=== PATIENT | female | born 2000 | race Hispanic/Latino ===

== ENCOUNTER 2023-05-03 16:14 | Emergency (ER) | payer BC ==
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
[2023-05-03 17:50] LABS: Absolute Lymphocytes (CBC) 1.3 K/uL (0.7-4.9); Hematocrit 43.9 % (36.0-45.0); Lymphocytes % 13.8 % (15.3-44.8); MCV 93.3 fL (80-100); MPV 7.6 fL (7.6-11.3); RBC Red Blood Cell Count 4.71 M/uL (3.86-4.86)
[2023-05-03 17:58] LABS: Specific Gravity > 1.030 (1.005-1.030); Urine Bacteria <20 /HPF (<20); Urine Bilirubin NEGATIVE (Negative); Urine Blood Negative (Negative); Urine Clarity Extremely Turbid (Clear); Urine Color Yellow (Yellow); Urine Glucose NEGATIVE (Negative); Urine Mucus 4+ /HPF (None Seen); Urine Protein 1+ (Negative); Urine Urobilinogen 1+ (Normal)
--- NOTE | 2023-05-03 18:07 | RAD REPORT ---
EXAM DESCRIPTION: Anish Single View05/03/2023 5:54 pm CLINICAL HISTORY: Chest pain COMPARISON: 2010 FINDINGS: The lungs appear clear of acute infiltrate. The heart is normal size IMPRESSION: No acute abnormalities displayed
[2023-05-03 18:15] LABS: Specific Gravity 1.037 (1.005-1.030)
[2023-05-03 18:28] LABS: ALT/SGPT 21 U/L (13-56); AST/SGOT 15 U/L (15-37); Albumin 3.9 g/dL (3.4-5.0); Alkaline Phosphatase 68 U/L (45-117); BUN Blood Urea Nitrogen 13 mg/dL (7-18); Bicarbonate 27 mEq/L (21-32); Bilirubin Direct 0.3 mg/dL (0-0.2); Bilirubin Indirect, Calculated 0.8 mg/dL (0.2-0.8); Bilirubin Total 1.1 mg/dL (0.2-1.0); Glomerular Filtration Rate 128 ml/min (=/>90); Glucose Level 85 mg/dL (74-106); Lipase 25 U/L (13-75); Magnesium 2.3 mg/dL (1.6-2.4); Potassium 3.8 mEq/L (3.5-5.1); Protein, Total 8.2 g/dL (6.4-8.2); Sodium Level 139 mEq/L (136-145)
[2023-05-03 18:29] LABS: Troponin High Sensitivity < 3.0 pg/mL (<58.9)
[2023-05-03] MEDS ORDERED: METOCLOPRAMIDE 10 MG/2mL INJ ONE (18:29)
[2023-05-03] MEDS ORDERED: ACETAMINOPHEN 325 MG TABLET ONE (18:30)
[2023-05-03] MEDS ORDERED: DIPHENHYDRAMINE 50 MG/ML VIAL ONE (18:30)
[2023-05-03] MEDS ORDERED: NA CHLORIDE 0.9% 1,000 ML ONE (18:30)
--- NOTE | 2023-05-03 18:58 | RAD REPORT ---
EXAM DESCRIPTION: CT - Head Brain Wo Cont - 05/03/2023 6:37 pm CLINICAL HISTORY: Headache COMPARISON: none TECHNIQUE: Computed axial tomography of the head was obtained. IV contrast was not requested. All CT scans are performed using dose optimization technique as appropriate and may include automated exposure control or mA/KV adjustment according to patient size. FINDINGS: An intracranial bleed is not seen The ventricles are normal in caliber No significant hypodense areas within the brain visualized No extra-axial fluid collection is noted. Fluid within the sinuses/ mastoids is not seen IMPRESSION: No acute intracranial abnormality is seen If patient's symptoms persist MRI of the brain would be recommended
[2023-05-03] MEDS ORDERED: KETOROLAC 30 MG/ML INJ ONE (19:29)
[2023-05-03] MEDS ORDERED: dexAMETHasone 10 MG/ML VIAL ONE (19:29)
--- NOTE | 2023-05-03 20:50 | RAD REPORT ---
EXAM DESCRIPTION: CT - Abdomen Pelvis W Contrast - 05/03/2023 8:30 pm CLINICAL HISTORY: Abdominal pain/right flank pain COMPARISON: none. TECHNIQUE: Computed axial tomography of the abdomen pelvis was obtained. 94 cc Isovue-300 was admini stered intravenously. Oral contrast was not requested which limits evaluation of bowel and appendix All CT scans are performed using dose optimization technique as appropriate and may include automated exposure control or mA/KV adjustment according to patient size. FINDINGS: The liver, spleen, pancreas, adrenal and kidneys appear unremarkable. There is no evidence of diverticulitis. A moderate amount of stool within the colon. An abnormal appendix is not seen. 2 centimeter irregularly shaped right ovarian cyst with small amount of free fluid. Mild compression deformity T12 vertebral body probably chronic IMPRESSION: 2 centimeter right ovarian cyst with small amount of free fluid. The cyst most likely scanlon s recently ruptured
--- NOTE | 2023-05-03 21:14 | EDPHYS ---
Physician Documentation [facility] Name: Iva Joy Age: 22 yrs Sex: Female : 2000 Arrival Date: 05/03/2023 Time: 16:14 Bed 4 Private MD: ED Physician Gigi Trevizo HPI: 05/03 16:50 This 22 yrs old Female presents to ER via Ambulatory with complaints of cp Headache, Flank Pain, Chest Tightness. 16:50 The patient complains of pain to the top of head and forehead. The patient describes cp the headache as aching, constant. Onset: The symptoms/episode began/occurred yesterday morning upon awakening. 16:50 Associated signs and symptoms: Pertinent positives: urinary symptoms, flank pain, chest cp pain. Severity of symptoms: in the emergency department the pain is unchanged, despite home interventions. Headache History: Other patient reports history of migraines in the past and this headache is not the worst she has experienced, but headache has lasted longer than usual with no relief. the symptoms are aggravated by movement. 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 - Social history:: Smoking status: Reported history of juuling and/or vaping. ROS: 16:55 Constitutional: Negative for body aches, chills, fever, poor PO intake. cp 16:55 Eyes: Negative for injury, pain, redness, and discharge. cp 16:55 ENT: Negative for drainage from ear(s), ear pain, sore throat, difficulty swallowing, difficulty handling secretions. 16:55 Cardiovascular: Positive for chest pain, Negative for edema, palpitations. 16:55 Respiratory: Positive for chest tightness, Negative for cough, wheezing. 16:55 Abdomen/GI: Negative for abdominal pain, vomiting, diarrhea, constipation. 16:55 : Positive for flank pain. 16:55 Neuro: Positive for headache, Negative for altered mental status, loss of consciousness, syncope, weakness. 16:55 All other systems are negative. Exam: 17:00 Constitutional: The patient appears in no acute distress, alert, awake, cp non-diaphoretic, non-toxic, well developed, well nourished. 17:00 Head/Face: Normocephalic, atraumatic. cp 17:00 Eyes: Periorbital structures: appear normal, Pupils: equal, round, and reactive to light and accomodation, Extraocular movements: intact throughout, Conjunctiva: normal, no exudate, no injection, Sclera: no appreciated abnormality, Lids and lashes: appear normal, bilaterally. 17:00 ENT: External ear(s): are unremarkable, Nose: is normal, Mouth: Lips: moist, Oral mucosa: pink and intact, moist, Posterior pharynx: is normal, airway is patent, no erythema, no exudate. 17:00 Neck: ROM/movement: is normal, is supple, without pain, no range of motions limitations, no meningismus, no nuchal rigidity. 17:00 Chest/axilla: Inspection: normal. 17:00 Cardiovascular: Rate: normal, Rhythm: regular. 17:00 Respiratory: the patient does not display signs of respiratory distress, Respirations: normal, no use of accessory muscles, no retractions, labored breathing, is not present, Breath sounds: are clear throughout, no decreased breath sounds, no stridor, no wheezing. 17:00 Abdomen/GI: Inspection: abdomen appears normal, Bowel sounds: active, all quadrants, Palpation: abdomen is soft and non-tender, in all quadrants. 17:00 Back: CVA tenderness, is absent. 17:00 Neuro: Orientation: to person, place \T\ time. Mentation: is normal, Cerebellar function: is grossly normal, Motor: moves all fours, strength is normal, Sensation: is normal. 17:45 ECG was reviewed by the Attending Physician. cp Vital Signs: 16:32 BP 121 / 74; Pulse 91; Resp 18; Temp 98.5; Pulse Ox 100% on R/A; Weight 60.78 kg; mb9 Height 5 ft. 3 in. ; Pain 8/10; 18:40 BP 100 / 59; Pulse 69; Resp 15 S; Pulse Ox 100% on R/A; aa5 20:48 BP 94 / 67; Pulse 61; Resp 16; Pulse Ox 100% on R/A; jb4 16:32 Body Mass Index 23.74 (60.78 kg, 160.02 cm) mb9 16:32 Pain Scale: Adult mb9 MDM: 16:41 Patient medically screened. 21:14 Data reviewed: vital signs, nurses notes, lab test result(s), EKG, radiologic studies, cp CT scan, plain films. 21:14 I considered the following discharge prescriptions or medication management in the emergency department Medications were administered in the Emergency Department. See MAR. Counseling: I had a detailed discussion with the patient and/or guardian regarding: the historical points, exam findings, and any diagnostic results supporting the discharge/admit diagnosis, lab results, radiology results, to return to the emergency department if symptoms worsen or persist or if there are any questions or concerns that arise at home. Response to treatment: the patient's symptoms have markedly improved after treatment, and as a result, I will discharge patient. Special discussion: Based on the patient's history, exam, and Dx evaluation, there is no indication for emergent intervention or inpatient Tx. It is understood by the patient/guardian that if the Sx's persist or worsen they need to return immediately for re-evaluation. Based on the patient's Hx, exam, and Dx evaluation, there is no indication for emergent surgery or inpatient Tx. It is understood by the patient/guardian that if the Sx's persist or worsen they need to return immediately for re-evaluation. 05/03 16:41 Order name: Basic Metabolic Panel; Complete Time: 19:10 05/03 16:41 Order name: CBC with Diff; Complete Time: 18:26 05/03 18:26 Interpretation: Normal except: FARHEEN% 76.0; LYM% 13.8. 05/03 16:41 Order name: LFT's; Complete Time: 19:10 cp 05/03 16:41 Order name: Magnesium; Complete Time: 19:10 05/03 16:41 Order name: Troponin HS; Complete Time: 19:10 05/03 16:41 Order name: Lipase; Complete Time: 19:10 05/03 17:02 Order name: Urinalysis W/Microscopic; Complete Time: 18:26 EDMS 05/03 18:26 Interpretation: Normal except: [facility] Extremely Turbid; Urine SG > 1.030; UPROT 1+; UUROB cp 1+; UESTR 25; URBC 5-10; MUCUS 4+. 05/03 17:02 Order name: Test, Urine; Complete Time: 18:26 EDMS 05/03 18:26 Interpretation: Abnormal: Urine SG 1.037. 05/03 16:41 Order name: XRAY Chest (1 view); Complete Time: 18:26 05/03 18:27 Interpretation: Report review. 05/03 16:44 Order name: CT Head Brain wo Cont; Complete Time: 19:10 05/03 19:26 Order name: CT Abd/Pelvis - IV Contrast Only; Complete Time: 21:11 05/03 21:11 Interpretation: Report reviewed. 05/03 16:41 Order name: EKG; Complete Time: 17:11 05/03 16:41 Order name: Cardiac monitoring; Complete Time: 17:42 05/03 16:41 Order name: EKG - Nurse/Tech; Complete Time: 17:42 05/03 16:41 Order name: IV Saline Lock; Complete Time: 17:42 05/03 16:41 Order name: Labs collected and sent; Complete Time: 17:42 05/03 16:41 Order name: O2 Per Protocol; Complete Time: 17:42 05/03 16:41 Order name: O2 Sat Monitoring; Complete Time: 17:42 cp EC:45 Rate is 74 beats/min. Rhythm is regular. NE interval is normal. QRS interval is normal. cp QT interval is normal. T waves are Inverted in lead aVR. Interpreted by me. Reviewed by me. Administered Medications: 18:40 Drug: metoCLOPramide IVP 10 mg Route: IVP; Site: left antecubital; aa5 18:40 Drug: diphenhydrAMINE IVP 25 mg Route: IVP; Site: left antecubital; aa5 18:40 Drug: Acetaminophen PO 650 mg Route: PO; aa5 18:40 Drug: NS 0.9% IV 1000 ml Route: IV; Rate: 1000 ml; Site: left antecubital; aa5 19:17 Drug: Ketorolac IVP 15 mg Route: IVP; Site: left antecubital; mb9 19:20 Drug: Decadron - Dexamethasone IVP 10 mg Route: IVP; Site: left antecubital; mb9 Disposition Summary: 05/03/23 21:14 Discharge Ordered Location: Home cp Problem: new cp Symptoms: have improved cp Condition: Stable cp Diagnosis - Headache cp - Chest pain, unspecified cp - Abdominal pain, unspecified cp - Other and unspecified ovarian cysts cp Followup: cp - With: Private Physician - When: 2 - 3 days - Reason: Worsening of condition Discharge Instructions: - Discharge Summary Sheet cp - Abdominal Pain, Adult cp - Nonspecific Chest Pain, Adult cp - General Headache Without Cause cp - Ovarian Cyst cp Forms: - Medication Reconciliation Form cp - Thank You Letter cp - Antibiotic Education cp - Prescription Opioid Use cp - Patient Portal Instructions cp - Work release form mb9 Prescriptions: - Ibuprofen 800 mg Oral Tablet - take 1 tablet by ORAL route every 8 hours As needed take with food; 30 tablet; cp Refills: 0, Product Selection Permitted Signatures: Dispatcher [employer] EDMS Deedee Franklin, RN RN aa5 Gigi Florian PA PA cp Lewis, Lynsay, RN RN ll1 Kristie Peña RN RN mb9 Corrections: (The following items were deleted from the chart) 20:07 17:11 Urinalysis W/Microscopic+U.LAB.BRZ ordered. EDMS EDMS 20:07 17:11 Test, Urine+UC.LAB.BRZ ordered. EDMS EDMS 21:06 17:11 SARS-COV-2 Antigen Rapid+I.LAB.BRZ ordered. EDMS EDMS
--- NOTE | 2023-05-03 21:14 | ER ---
Nurse's Notes [facility] Name: Iva Joy Age: 22 yrs Sex: Female : 2000 Arrival Date: 05/03/2023 Time: 16:14 Bed 4 Private MD: Diagnosis: Headache;Chest pain, unspecified;Abdominal pain, unspecified;Other and unspecified ovarian cysts Presentation: 05/03 16:32 Chief complaint: Patient states: "I woke up yesterday with a headache and gotten worse mb9 throughout the day. This morning it was worse and I've never had a migraine that has been this bad. Today, I started having sharp pain in my right flank and started having burning when I pee. I've been coughing as well and my chest feels tight when that happens. I've been congested for 2 months now. Coronavirus screen: Vaccine status: Patient reports being unvaccinated. Ebola Screen: No symptoms or risks identified at this time. Initial Sepsis Screen: Does the patient meet any 2 criteria? No. Patient's initial sepsis screen is negative. Does the patient have a suspected source of infection? No. Patient's initial sepsis screen is negative. Risk Assessment: Do you want to hurt yourself or someone else? Patient reports no desire to harm self or others. Onset of symptoms was May 03, 2023. 16:32 Method Of Arrival: Ambulatory mb9 16:32 Acuity: JIAN 3 mb9 Triage Assessment: 16:34 Headache History: The patient has had previous headaches. General: Appears mb9 uncomfortable, Behavior is calm, cooperative. Pain: Complains of pain in back and head. Pain: Pain does not radiate. Pain currently is 8 out of 10 on a pain scale. Pain began 1 day ago. Also complains of no other associated symptoms. Pain: Complains of pain in neck. EENT: No signs and/or symptoms were reported regarding the EENT system. Neuro: Goyal Agitation-Sedation Scale (RASS): 0 - Alert and Calm Level of Consciousness is awake, alert, obeys commands, Oriented to person, place, time, situation, Appropriate for age Reports headache. Neuro: Reports. Cardiovascular: Patient's skin is warm and dry. Respiratory: Airway is patent Respiratory effort is even, unlabored, Respiratory pattern is regular, symmetrical, Breath sounds are clear bilaterally. : Reports burning with urination. Derm: Skin is pink, warm \\T\\ dry. Musculoskeletal: Range of motion: intact in all extremities. 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 - Social history:: Smoking status: Reported history of juuling and/or vaping. Screenin:30 [facility] ED Fall Risk Assessment (Adult) History of falling in the last 3 months, aa5 including since admission No falls in past 3 months (0 pts) Confusion or Disorientation No (0 pts) Intoxicated or Sedated No (0 pts) Impaired Gait No (0 pts) Mobility Assist Device Used No (0 pt) Altered Elimination No (0 pt) Score/Fall Risk Level 0 - 2 = Low Risk Oriented to surroundings, Maintained a safe environment, Educated pt \\T\\ family on fall prevention, incl call for assistance when getting out of bed. Abuse screen: Denies threats or abuse. Nutritional screening: No deficits noted. Tuberculosis screening: No symptoms or risk factors identified. Assessment: 17:30 General: Appears comfortable, Behavior is calm, cooperative. Pain: Complains of pain in aa5 forehead Pain currently is 8 out of 10 on a pain scale. Quality of pain is described as pressure, Pain began 1 day ago. Is continuous. Neuro: Level of Consciousness is awake, alert, obeys commands, Oriented to person, place, time, situation. Cardiovascular: Reports chest pain with cough Heart tones S1 S2 present Rhythm is regular. Respiratory: Reports slight cough Airway is patent Respiratory effort is even, unlabored, Respiratory pattern is regular, symmetrical, Breath sounds are clear bilaterally. Denies shortness of breath. GI: Abdomen is flat, non-distended, Bowel sounds present X 4 quads. Abd is soft and non tender X 4 quads. Patient currently denies diarrhea, nausea, vomiting. : Reports burning with urination, pain in right flank(s). EENT: Reports nasal congestion on and off x 2 months ago. Derm: Skin is pink, warm \\T\\ dry. Musculoskeletal: Range of motion: intact in all extremities. 18:25 Reassessment: To bedside to administer medications, pt currently at CT scan. . aa5 18:40 Reassessment: Patient is alert, oriented x 3, equal unlabored respirations, skin aa5 warm/dry/pink. 19:26 Reassessment: Patient and/or family updated on plan of care and expected duration. Pain mb9 level reassessed. Patient is alert, oriented x 3, equal unlabored respirations, skin warm/dry/pink. Patient states feeling better. Patient states symptoms have improved. 20:48 Reassessment: Patient appears in no apparent distress at this time. Patient and/or jb4 family updated on plan of care and expected duration. Pain level reassessed. Patient is alert, oriented x 3, equal unlabored respirations, skin warm/dry/pink. Vital Signs: 16:32 BP 121 / 74; Pulse 91; Resp 18; Temp 98.5; Pulse Ox 100% on R/A; Weight 60.78 kg; mb9 Height 5 ft. 3 in. ; Pain 8/10; 18:40 BP 100 / 59; Pulse 69; Resp 15 S; Pulse Ox 100% on R/A; aa5 20:48 BP 94 / 67; Pulse 61; Resp 16; Pulse Ox 100% on R/A; jb4 16:32 Body Mass Index 23.74 (60.78 kg, 160.02 cm) mb9 16:32 Pain Scale: Adult mb9 ED Course: 16:24 Patient arrived in ED. am2 16:27 Gigi Florian PA is PHCP. cp 16:27 Gigi Trevizo MD is Attending Physician. cp 16:34 Triage completed. mb9 16:34 Arm band placed on. mb9 17:13 Patient placed in an exam room, on a stretcher. ll1 17:22 Deedee Franklin, RN is Primary Nurse. aa5 17:30 Patient has correct armband on for positive identification. Placed in gown. Bed in low aa5 position. Call light in reach. Side rails up X2. Client placed on continuous cardiac and pulse oximetry monitoring. NIBP monitoring applied. 17:36 Initial lab(s) drawn, by me, sent to lab. Inserted saline lock: 20 gauge in left aa5 forearm, using aseptic technique. Blood collected. 17:40 EKG done, by ED staff, reviewed by Gigi CONDE. aa5 17:55 XRAY Chest (1 view) In Process Unspecified. EDMS 18:39 CT Head Brain wo Cont In Process Unspecified. EDMS 20:31 CT Abd/Pelvis - IV Contrast Only In Process Unspecified. EDMS 21:20 No provider procedures requiring assistance completed. IV discontinued, intact, mb9 bleeding controlled, No redness/swelling at site. Pressure dressing applied. Administered Medications: 18:40 Drug: metoCLOPramide IVP 10 mg Route: IVP; Site: left antecubital; aa5 18:40 Drug: diphenhydrAMINE IVP 25 mg Route: IVP; Site: left antecubital; aa5 18:40 Drug: Acetaminophen PO 650 mg Route: PO; aa5 18:40 Drug: NS 0.9% IV 1000 ml Route: IV; Rate: 1000 ml; Site: left antecubital; aa5 19:17 Drug: Ketorolac IVP 15 mg Route: IVP; Site: left antecubital; mb9 19:20 Drug: Decadron - Dexamethasone IVP 10 mg Route: IVP; Site: left antecubital; mb9 Medication: 18:46 VIS not applicable for this client. aa5 Outcome: 21:14 Discharge ordered by MD. cp 21:19 Discharged to home ambulatory. mb9 21:19 Condition: stable 21:19 Discharge instructions given to patient, Instructed on discharge instructions, follow up and referral plans. Demonstrated understanding of instructions, follow-up care, medications, Prescriptions given X 1. 21:20 Patient left the ED. mb9 Signatures: Dispatcher [employer] EDMS Deedee Franklin, RN RN aa5 Gigi Florian, Atilio Robledo cp, RN RN jb4 Ashely Cramer Lynsay RN RN ll1 Kristie Peña RN RN mb9
[2023-05-04 01:03] VITALS: TEMP 98.5; O2SAT 100
[2023-05-04 01:06] VITALS: BP 94/67
--- NOTE | 2023-05-04 20:40 | EKG ---
Test Date: 2023-05-03 Test Time: 17:38:23 Pedorthist: GRACIA MEASUREMENT RESULTS: Intervals: Rate: 74 PA: 106 QRSD: 94 QT: 386 QTc: 428 [place]: P: 62 PA: 106 QRS: 71 T: 52 INTERPRETIVE STATEMENTS: Sinus rhythm with short PA Otherwise normal ECG No previous ECG available for comparison Electronically Signed On 05-04-23 20:37:47 CDT by Saw Cordon
== END 2023-05-03 21:20 | disposition home or self-care (01) ==
LOC: ER 16:14
DX: R07.9 Chest pain, unspecified (principal); R51.9 Headache, unspecified; R10.9 Unspecified abdominal pain; N83.201 Unspecified ovarian cyst, right side
CPT/HCPCS: 93005; 85025; 81001; 80048; 36415; 83735; 81025; 80076; 84484; 83690; 70450; 74177; 71045; 96375; 96374; 99285; Q9967; J2765; J1200; J1100; J7030

== ENCOUNTER 2023-06-07 18:27 | Emergency (ER) | payer BC ==
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
[2023-06-08] MEDS ORDERED: AZITHROMYCIN 250 MG TAB ONE (00:09)
[2023-06-08] MEDS ORDERED: ONDANSETRON 4 MG (ODT) TAB ONE (00:09)
[2023-06-08] MEDS ORDERED: metroNIDAZOLE 500 MG TABLET ONE (00:14)
[2023-06-08 00:37] VITALS: BP 116/67; TEMP 98.3; O2SAT 100
== END 2023-06-08 00:13 | disposition home or self-care (01) ==
LOC: ER 18:27
DX: T76.21XA Adult sexual abuse, suspected, initial encounter (principal)
CPT/HCPCS: 99282; Q0162